=== PATIENT | female | born 1975 | race Caucasian/White ===

== ENCOUNTER 2018-01-23 19:59 | Emergency (ER) | payer OTHER ==
[~2018-01-23] VITALS: Ht 170.2 cm; Wt 61.1 kg
[~2018-01-23 19:59] MED LIST: DURAGESIC25 MCG TD; KLONOPIN0.5 M1 PO; NOHOMEMEDS; NORCO 5/3251 TABLET PO; PREDNISONE50 MG PO; VENLAFAXINE HCL75 MG PO; ZOHYDRO ER10 MG PO
[2018-01-23 20:43] LABS: HEMATOCRIT 44.3 % (36.0-46.0); HEMOGLOBIN 15.1 G/DL (11.9-15.5); MCH 29.9 PG (29.0-34.0); MCHC 34.1 G/DL (30.0-36.0); MCV 87.7 FL (83-99); PLATELET COUNT 305 K/uL (156-360); RBC DIS.WIDTH-SD 38.5 % (39-53); RED BLOOD COUNT 5.05 M/uL (3.80-5.20)
[2018-01-23 20:58] LABS: ALBUMIN 4.1 g/dL (3.2-4.8); CHLORIDE 101 mEq/L (99-109); SODIUM 139 mEq/L (136-147)
[2018-01-23 21:01] LABS: GLUCOSE 112 mg/dL (70-99); TOTAL PROTEIN 7.2 g/dL (6.4-8.3)
[2018-01-23 21:03] LABS: TOTAL BILIRUBIN 0.9 mg/dL (0.0-1.0)
[2018-01-23 21:04] LABS: ALKALINE PHOSPHATASE 84 IU/L (3-129); CREATININE 0.8 mg/dL (0.6-1.3); GFR ESTIMATE (CALCULATED) > 59 mL/min/
[2018-01-23 21:05] LABS: UREA NITROGEN (BUN) 12 mg/dL (9-23)
[2018-01-23 21:06] LABS: AST (GOT) 46 IU/L (2-34)
[2018-01-23 21:07] LABS: ALT (GPT) 22 IU/L (3-49)
[2018-01-23 21:14] LABS: QUANTITATIVE HCG < 4.0 MIU/ML
[2018-01-23] MEDS ORDERED: BENTYL20 MG PO (23:35)
[2018-01-23] MEDS ORDERED: ZOFRAN ODT4 MG PO (23:35)
[2018-01-24 00:18] LABS: APPEARANCE SL.HAZY ((CLEAR)); BILIRUBIN NEGATIVE; BLOOD NEGATIVE; COLOR YELLOW ((YELLOW)); GLUCOSE (STRIP) NEGATIVE; KETONES NEGATIVE; LEUKOCYTES NEGATIVE; NITRITE NEGATIVE; PROTEIN (STRIP) NEGATIVE; SPECIFIC GRAVITY 1.015 (1.000-1.030)
[2018-01-24 00:26] VITALS: BP 118/74
[2018-01-24 00:35] LABS: BACTERIA 1+ /HPF; EPITHELIAL CELLS 2+ /HPF; MUCUS TRACE /LPF; RED BLOOD CELLS 0-5 /HPF (0-5); UCUL ADDED? NO; WHITE BLOOD CELLS 0-5 /HPF (0-5)
== END 2018-01-24 00:29 | disposition home or self-care (01) ==
LOC: EME 19:59
DX: R11.2 Nausea with vomiting, unspecified (principal); R19.7 Diarrhea, unspecified; E06.3 Autoimmune thyroiditis; F41.9 Anxiety disorder, unspecified; F32.9 Major depressive disorder, single episode, unspecified; Z90.49 Acquired absence of other specified parts of digestive tract; Z90.710 Acquired absence of both cervix and uterus
CPT/HCPCS: 80053; 81003; 84702; 85027; 99281; 99284